=== PATIENT | female | born 2000 | race African-American/Black ===

== ENCOUNTER 2020-11-13 20:06 | Emergency (ER) | payer OTHER ==
[~2020-11-13] VITALS: Ht 157.5 cm; Wt 63.7 kg
[2020-11-13] MEDS ORDERED: ACETAMINOPHEN 500 MG TAB PO ONE (21:45)
[2020-11-13 22:36] LABS: RSV AMPLIFICATION NEGATIVE (NEGATIVE)
[2020-11-13] MEDS ORDERED: NS 1,000 ML IV ONE (22:55)
[2020-11-13 23:30] LABS: BASO % 0.2 % (0.0-1.0); EOS % 0.2 % (0.0-3.0); LYMPH # 1.4 10^3/uL (1.5-5.0); LYMPH % 10.7 % (24.0-44.0); MEAN CORPUSCULAR HEMOGLOBIN 26.4 pg (27.0-33.0); MEAN CORPUSCULAR HGB CONC 31.6 g/dl (32.0-36.5); MEAN CORPUSCULAR VOLUME 83.7 fl (80.0-96.0); MONO # 1.4 10^3/uL (0.0-0.8); MONO % 11.1 % (2.0-8.0); NEUTROPHILS % 77.3 % (36.0-66.0); PLATELET COUNT, AUTOMATED 266 10^3/uL (150-450); RED BLOOD COUNT 4.54 10^6/uL (4.00-5.40); WHITE BLOOD COUNT 12.9 10^3/uL (4.0-10.0)
[2020-11-13 23:50] LABS: C REACTIVE PROTEIN QUANTITATIV 4.64 MG/DL (0.00-0.30)
[2020-11-13 23:53] LABS: ERYTHROCYTE SEDIMENTATION RATE 43 mm/hr (0-20)
[2020-11-13 23:55] LABS: MONO SCRN NEGATIVE (NEGATIVE)
[2020-11-14] MEDS ORDERED: cefTRIAXone SOD 1 GM in D5W MINI-BAG PLUS 50 ML IV ONE (00:35)
--- NOTE | 2020-11-14 01:11 | REPVR ---
PROCEDURE INFORMATION: Exam: XR Chest Exam date and time: 11/13/2020 11:43 PM Age: 19 years old Clinical indication: Cough and fever; Additional info: Cough, fever TECHNIQUE: Imaging protocol: XR of the chest. Views: 2 views. COMPARISON: No relevant prior studies available. FINDINGS: Lungs: Unremarkable. No consolidation. Pleural spaces: Unremarkable. No pleural effusion. No pneumothorax. Heart/Mediastinum: Unremarkable. No cardiomegaly. Bones/joints: Unremarkable. IMPRESSION: No acute findings. Electronically signed by: Jamey Gonsalez On 11/14/2020 01:10:44 AM
[2020-11-14] MEDS ORDERED: CEPH500C PO (01:26)
[2020-11-14 01:42] VITALS: BP 126/73
== END 2020-11-14 01:42 | disposition home or self-care (01) ==
LOC: M ED 20:06
DX: N10 Acute pyelonephritis (principal); R50.9 Fever, unspecified
CPT/HCPCS: 71046; 80047; 81001; 83605; 84702; 85025; 85652; 86140; 86308; 87040; 87088; 87186; 87631; 96365; 99283; J0696

== ENCOUNTER 2020-11-16 11:10 | Observation (INO) | payer OTHER ==
[~2020-11-16] VITALS: Ht 157.5 cm; Wt 62.7 kg
[~2020-11-16 11:10] MED LIST: CEPH500C PO
[2020-11-16 12:31] LABS: APPEARANCE, URINE HAZY (CLEAR); BACTERIA, URINE AUTO 1+ (NEGATIVE); BILIRUBIN, URINE AUTO NEGATIVE (NEGATIVE); BLOOD, URINE BLOOD NEGATIVE (NEGATIVE); COLOR, URINE YELLOW (YELLOW); GLUCOSE, URINE (UA) AUTO NEGATIVE (NEGATIVE); KETONE, URINE AUTO NEGATIVE (NEGATIVE); LEUKOCYTE ESTERASE, URINE AUTO 2+ (NEGATIVE); MUCUS, URINE SMALL (NEGATIVE); NITRITE, URINE AUTO NEGATIVE (NEGATIVE); PROTEIN, URINE AUTO NEGATIVE (NEGATIVE); RBC, URINE AUTO 5 /HPF (0-3); SQUAMOUS EPITHELIAL CELL UR AU 1 /HPF (0-6); UROBILINOGEN, URINE AUTO 0.2 mg/dL (0.0-2.0); WBC, URINE AUTO 21 /HPF (0-3)
[2020-11-16] MEDS ORDERED: NS 1,000 ML IV ONE ×2 (13:10→14:30)
[2020-11-16 14:21] LABS: HEMATOCRIT 36.2 % (36.0-47.0); HEMOGLOBIN 11.5 g/dl (12.0-15.5); MEAN CORPUSCULAR HGB CONC 31.8 g/dl (32.0-36.5); PLATELET COUNT, AUTOMATED 256 10^3/uL (150-450); RED BLOOD COUNT 4.26 10^6/uL (4.00-5.40); WHITE BLOOD COUNT 6.6 10^3/uL (4.0-10.0)
[2020-11-16 14:49] LABS: ALT/SGPT 19 U/L (12-78); BILIRUBIN,DIRECT < 0.1 MG/DL (0.0-0.2); BILIRUBIN,TOTAL 0.2 MG/DL (0.2-1.0); BLOOD UREA NITROGEN 13 MG/DL (7-18); CALCIUM LEVEL 8.6 MG/DL (8.5-10.1); CARBON DIOXIDE LEVEL 27 MEQ/L (21-32); CHLORIDE LEVEL 109 MEQ/L (98-107); CREATININE FOR GFR 0.67 MG/DL (0.55-1.30); GLOMERULAR FILTRATION RATE > 60.0 (>60); GLUCOSE, FASTING 89 MG/DL (70-100); LIPASE 121 U/L (73-393); POTASSIUM SERUM 3.9 MEQ/L (3.5-5.1); SODIUM LEVEL 139 MEQ/L (136-145); TOTAL PROTEIN 7.5 GM/DL (6.4-8.2)
[2020-11-16 14:53] LABS: HCG, SERUM QUALITATIVE NEGATIVE (NEGATIVE)
[2020-11-16] MEDS ORDERED: ISOVUE-370 76% 100ML VIAL As Ordered ONE (15:31)
[2020-11-16] MEDS ORDERED: cefTRIAXone SOD 1 GM in D5W MINI-BAG PLUS 50 ML IV ONE (15:35)
[2020-11-16 16:01] LABS: ATYPICAL LYMPH 13 % (0-5); LYMPHOCYTES 30 % (16-44); MONOCYTES 15 % (0-5); NEUTROPHILS 42 % (28-66); PLATELET ESTIMATE NORMAL (NORMAL)
--- NOTE | 2020-11-16 16:11 | REP ---
INDICATION: R flank into RLQ pain, concern for pyelonephritis COMPARISON: None. TECHNIQUE: CT Scan of the abdomen and pelvis was performed with intravenous administration of 100 cc of Isovue 370, without oral contrast. Sagittal and coronal reconstruction images are performed. FINDINGS: Lung bases: Unremarkable. Liver: Normal Gallbladder: Unremarkable. Spleen: Normal. Adrenals: Normal. Pancreas: Normal. Kidneys: Small scattered ill-defined hypodense areas in the renal cortex bilaterally are noted with associated loss of corticomedullary differentiation. The findings are suggestive of pyelonephritis. There is no hydronephrosis. Small and large bowel: Unremarkable. Free fluid: There is trace free fluid in the cul-de-sac likely physiologic. Abdominal aorta: No aneurysm or dissection. Adenopathy: None. Appendix: Not inflamed. Osseous structures: Unremarkable. Pelvis: No mass. IMPRESSION: Findings compatible with bilateral pyelonephritis. No hydronephrosis or other acute abnormality. <Electronically signed by Timmy Conde > 11/16/20 [id number]
[2020-11-16] MEDS ORDERED: KETOROLAC 30 MG/ML 1ML VIAL IV ONE (17:20)
--- NOTE | 2020-11-16 18:07 | HPEPDOC ---
General Date of Admission 11/16/20 Date of Service: Nov 16, 2020 Chief Complaint The patient is a 19-year-old female admitted with a reason for visit of Urinary Problem. 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 Patient was here on November 13 with fever and right-sided back pain. At that time she was diagnosed with the pyelonephritis and sent home with them the prescription for Keflex. However, patient did not start antibiotics at all. . She went to see her primary care today for a sick call and was told to come back to the emergency room. Patient's urine culture from November 13 is growing Escherichia coli sensitive to all antibiotics. Of note, patient had a urinary tract infection in October when she was treated with 5 days of nitrofurantoin and her symptoms of dysuria, frequency of urination went away and she was well for 3 weeks. Her back pain started on November 11 , located at the mid back. First was on right side now on both sides. Dull aching in nature with no radiation. . She was also having her menstruation at the same time, so she initially thought it was a either a muscle cramp or related to her menstruation. However, the back pain didn't go away after 2 days, so she came to the emergency room on the . Now back again with the persisting back pain. CT abdomen and pelvis in the emergency room showed suggestions of bilateral pyelonephritis. Patient is being admitted for pyelonephritis. Home Medications No Active Prescriptions or Reported Meds Allergies Coded Allergies: No Known Allergies (Unverified , 11/13/20) Past Medical History Medical History None Surgical History None Family History Significant Family History: Diabetes (grandmother) Social History * Smoker: other (vape) Alcohol: rarely Drugs: denies A-FIB/CHADSVASC A-FIB History Current/History of A-Fib/PAF?: No Review of Systems Constitutional: Reports: Fatigue; Denies: Chills, Fever, Night Sweats Eyes: Denies: Pain, Vision change Skin: Denies: Rash, Lesions, Breakdown Pulmonary: Denies: Dyspnea, Cough Cardiovascular: Denies: Chest Pain, Palpitations, Orthopnea, Paroxysmal Noc. Dyspnea, Lt Headedness Gastrointestinal: Reports: Abdominal Pain Genitourinary: Reports: Dysuria, Frequency Physical Examination General Exam: Positive: Alert, Cooperative, No Acute Distress Eye Exam: Positive: PERRLA, Conjunctiva & lids normal, EOMI; Negative: Sclera icteric Neck Exam: Positive: Supple; Negative: JVD, thyromegaly Chest Exam: Positive: Clear to auscultation, Normal air movement Heart Exam: Positive: Rate Normal, Regular Rhythm, Normal S1, Normal S2; Negative: Murmurs, Rubs Abdomen Exam: Positive: Normal bowel sounds, Soft, Other (bilateral CVA tenderness present); Negative: Hepatospenomegaly Extremity Exam: Negative: Clubbing, Cyanosis, Edema Vital Signs Vital Signs Date Time Temp Pulse Resp B/P (MAP) Pulse Ox O2 Delivery O2 Flow Rate FiO2 11/16/20 16:13 98.7 50 18 111/67 (82) 100 Room Air Laboratory Data Labs 24H Laboratory Tests 2 11/16/20 12:19: Urine Color YELLOW, Urine Appearance HAZY, Urine pH 5.0, Urine Specific [place] 1.010, Urine Protein NEGATIVE, Urine Glucose (Auto)(UA) NEGATIVE, Urine Ketones (Auto) NEGATIVE, Urine Blood NEGATIVE, Urine Nitrite NEGATIVE, Urine Bilirubin NEGATIVE, Urine Urobilinogen 0.2, Urine Leukocyte Esterase (Auto) 2+H, Urine WBC (Auto) 21H, Urine RBC (Auto) 5H, Urine Hyaline Casts (Auto) 0, Urine Bacteria (Auto) 1+H, Urine Squamous Epithelial Cells 1, Urine Mucus (Auto) SMALL, Urine Sperm (Auto) 11/16/20 14:05: Neutrophils (%) (Auto) , Nucleated Red Blood Cells % (auto) 0.0, Neutrophils 42, Lymphocytes (Manual) 30, Monocytes (Manual) 15H, Atypical Lymphocytes 13H, Platelet Estimate NORMAL, Anion Gap 3L, Glomerular Filtration Rate > 60.0, Lactic Acid Level 1.0, Calcium Level 8.6, Total Bilirubin 0.2, Direct Bilirubin < 0.1, Aspartate Amino Transf (AST/SGOT) 13, Alanine Aminotransferase (ALT/SGPT) 19, Alkaline Phosphatase 66, Total Protein 7.5, Albumin 3.0L, Albumin/Globulin Ratio 0.7L, Lipase 121, Human Chorionic Gonadotropin, Qual NEGATIVE CBC/BMP Laboratory Tests 11/16/20 14:05 Microbiology Microbiology 11/16/20 Blood Culture, Received Pending 11/16/20 Blood Culture, Received Pending Assessment/Plan 19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 Patient was here on November 13 with fever and right-sided back pain. At that time she was diagnosed with the pyelonephritis and sent home with them the prescription for Keflex. However, patient did not start antibiotics at all. . She went to see her primary care today for a sick call and was told to come back to the emergency room. Patient's urine culture from November 13 is growing Escherichia coli sensitive to all antibiotics. Of note, patient had a urinary tract infection in October when she was treated with 5 days of nitrofurantoin and her symptoms of dysuria, frequency of urination went away and she was well for 3 weeks. Her back pain started on November 11 , located at the mid back. First was on right side now on both sides. Dull aching in nature with no radiation. . She was also having her menstruation at the same time, so she initially thought it was a either a muscle cramp or related to her menstruation. However, the back pain didn't go away after 2 days, so she came to the emergency room on the . Now back again with the persisting back pain. CT abdomen and pelvis in the emergency room showed suggestions of bilateral pyelonephritis. Patient is being admitted for pyelonephritis. Bilateral pyelonephritis CT abd: Small scattered ill-defined hypodense areas in the renal cortex bi laterally are noted with associated loss of corticomedullary differentiation. The findings are suggestive of pyelonephritis. Will give ceftriaxone Last urine culture was Escherichia coli , but was only 80,000 CFU. Blood culture from November 13 negative Urine culture and blood cultures have been sent today Toradol for pain Plan / VTE VTE Prophylaxis Ordered?: Yes LIZZIE PRIETO MD Nov 16, 2020 17:27
[2020-11-16 20:01] LABS: CHLAMYDIA DNA AMPLIFICATION NEGATIVE (NEGATIVE); GC DNA AMPLIFICATION NEGATIVE (NEGATIVE)
[2020-11-16 20:15] VITALS: BP 123/69
[2020-11-17 06:15] LABS: MEAN CORPUSCULAR HEMOGLOBIN 26.7 pg (27.0-33.0); MEAN CORPUSCULAR HGB CONC 31.6 g/dl (32.0-36.5); MEAN CORPUSCULAR VOLUME 84.6 fl (80.0-96.0); PLATELET COUNT, AUTOMATED 323 10^3/uL (150-450); RED BLOOD COUNT 4.49 10^6/uL (4.00-5.40); WHITE BLOOD COUNT 7.3 10^3/uL (4.0-10.0)
[2020-11-17 06:46] LABS: BLOOD UREA NITROGEN 10 MG/DL (7-18); CALCIUM LEVEL 8.2 MG/DL (8.5-10.1); CARBON DIOXIDE LEVEL 27 MEQ/L (21-32); CHLORIDE LEVEL 109 MEQ/L (98-107); CREATININE FOR GFR 0.76 MG/DL (0.55-1.30); GLOMERULAR FILTRATION RATE > 60.0 (>60); GLUCOSE, FASTING 92 MG/DL (70-100); POTASSIUM SERUM 4.4 MEQ/L (3.5-5.1); SODIUM LEVEL 141 MEQ/L (136-145)
[2020-11-17] MEDS ORDERED: cefTRIAXone SOD 1 GM in D5W MINI-BAG PLUS 50 ML IV SCH (12:00)
[2020-11-17] MEDS ORDERED: CEFD300CAP PO (12:47)
[2020-11-17 14:36] VITALS: BP 106/60
--- NOTE | 2020-11-17 18:50 | IPNPDOC ---
Subjective Date Seen The patient was seen on 11/17/20. Subjective Chief Complaint/HPI No complaints today. Back pain is much better. patient had refused toradol last night. Objective Physical Examination General Exam: Positive: Alert, Cooperative, No Acute Distress Eye Exam: Positive: PERRLA, Conjunctiva & lids normal, EOMI; Negative: Sclera icteric Neck Exam: Positive: Supple; Negative: JVD, thyromegaly Chest Exam: Positive: Clear to auscultation, Normal air movement Heart Exam: Positive: Rate Normal, Regular Rhythm, Normal S1, Normal S2; Negative: Murmurs, Rubs Abdomen Exam: Positive: Normal bowel sounds, Soft, Other (bilateral CVA tenderness present); Negative: Hepatospenomegaly Extremity Exam: Negative: Clubbing, Cyanosis, Edema Assessment /Plan Assessment 19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 Patient was here on November 13 with fever and right-sided back pain. At that time she was diagnosed with the pyelonephritis and sent home with them the prescription for Keflex. However, patient did not start antibiotics at all. . She went to see her primary care today for a sick call and was told to come back to the emergency room. Patient's urine culture from November 13 is growing Escherichia coli sensitive to all antibiotics. Of note, patient had a urinary tract infection in October when she was treated with 5 days of nitrofurantoin and her symptoms of dysuria, frequency of urination went away and she was well for 3 weeks. Her back pain started on November 11 , located at the mid back. First was on right side now on both sides. Dull aching in nature with no radiation. . She was also having her menstruation at the same time, so she initially thought it was a either a muscle cramp or related to her menstruation. However, the back pain didn't go away after 2 days, so she came to the emergency room on the . Now back again with the persisting back pain. CT abdomen and pelvis in the emergency room showed suggestions of bilateral pyelonephritis. Patient is being admitted for pyelonephritis. Bilateral pyelonephritis CT abd: Small scattered ill-defined hypodense areas in the renal cortex b ilaterally are noted with associated loss of corticomedullary differentiation. The findings are suggestive of pyelonephritis. received ceftriaxone in hospital. will be discharged with cefdinir. Last urine culture was Escherichia coli , but was only 80,000 CFU. Blood culture from November 13 negative blood cultures negative till date Ibuprofen prn for back pain Dispo: Home Plan/VTE VTE Prophylaxis Ordered?: Yes VS, I&O, 24H, Fishbone Vital Signs/I&O Vital Signs Date Time Temp Pulse Resp B/P (MAP) Pulse Ox O2 Delivery O2 Flow Rate FiO2 11/16/20 20:16 98.1 60 18 114/70 (85) 100 Room Air I&O- Last 24 Hours up to 6 AM 11/17/20 06:00 Intake Total 2290 ml Output Total 0 ml Balance 2290 ml Laboratory Data 24H LABS Laboratory Tests 2 11/16/20 12:19: Urine Color YELLOW, Urine Appearance HAZY, Urine pH 5.0, Urine Specific [place] 1.010, Urine Protein NEGATIVE, Urine Glucose (Auto)(UA) NEGATIVE, Urine Ketones (Auto) NEGATIVE, Urine Blood NEGATIVE, Urine Nitrite NEGATIVE, Urine Bilirubin NEGATIVE, Urine Urobilinogen 0.2, Urine Leukocyte Esterase (Auto) 2+H, Urine WBC (Auto) 21H, Urine RBC (Auto) 5H, Urine Hyaline Casts (Auto) 0, Urine Bacteria (Auto) 1+H, Urine Squamous Epithelial Cells 1, Urine Mucus (Auto) SMALL, Urine Sperm (Auto) , Chlamydia trachomatis DNA (VITALIY) NEGATIVE, Neisseria gonorrhoeae DNA (VITALIY) NEGATIVE 11/16/20 14:05: Neutrophils (%) (Auto) , Nucleated Red Blood Cells % (auto) 0.0, Neutrophils 42, Lymphocytes (Manual) 30, Monocytes (Manual) 15H, Atypical Lymphocytes 13H, Platelet Estimate NORMAL, Anion Gap 3L, Glomerular Filtration Rate > 60.0, Lactic Acid Level 1.0, Calcium Level 8.6, Total Bilirubin 0.2, Direct Bilirubin < 0.1, Aspartate Amino Transf (AST/SGOT) 13, Alanine Aminotransferase (ALT/SGPT) 19, Alkaline Phosphatase 66, Total Protein 7.5, Albumin 3.0L, Albumin/Globulin Ratio 0.7L, Lipase 121, Human Chorionic Gonadotropin, Qual NEGATIVE 11/16/20 17:10: Coronavirus (COVID-19)(PCR) NEGATIVE 11/17/20 05:34: Nucleated Red Blood Cells % (auto) 0.0, Anion Gap 5L, Glomerular Filtration Rate > 60.0, Calcium Level 8.2L CBC/BMP Laboratory Tests 11/16/20 14:05 11/17/20 05:34 Microbiology Microbiology 11/16/20 Blood Culture, Received Pending 11/16/20 Blood Culture, Received Pending LIZZIE PRIETO MD Nov 17, 2020 07:53
== END 2020-11-17 17:45 | disposition home or self-care (01) ==
LOC: M ED 11:10 → M ED INP 11:11 → ENRESERV 18:53 → M MS5PR 22:04
PROVIDERS: ADMIT Internal Medicine Nephrology; ATTEND Internal Medicine Nephrology
DX: N12 Tubulo-interstitial nephritis, not specified as acute or chronic (principal); M54.6 Pain in thoracic spine; Z87.440 Personal history of urinary (tract) infections; F17.290 Nicotine dependence, other tobacco product, uncomplicated
CPT/HCPCS: 36415; 74177; 80048; 80076; 81001; 83605; 83690; 84703; 85025; 85027; 87040; 87491; 87591; 87661; 96361; 96365; 96366; 96376; 99284; J0696; Q9967; U0002

== ENCOUNTER 2021-01-05 10:07 | Emergency (ER) | payer OTHER ==
[~2021-01-05] VITALS: Ht 157.5 cm; Wt 63.6 kg
[~2021-01-05 10:07] MED LIST changes: +CEFD300CAP PO
[2021-01-05] MEDS ORDERED: CEPHALEXIN 500 MG CAP PO ONE (12:55)
[2021-01-05] MEDS ORDERED: dexameTHASONE 4 MG/ML 1ML VIAL (J1100 PER 1MG) PO ONE (12:55)
[2021-01-05] MEDS ORDERED: CEPH500C PO (12:57)
[2021-01-05 13:21] VITALS: BP 131/65
== END 2021-01-05 13:40 | disposition home or self-care (01) ==
LOC: M ED 10:07
DX: J03.90 Acute tonsillitis, unspecified (principal); F17.200 Nicotine dependence, unspecified, uncomplicated
CPT/HCPCS: 87880; 99283; J1100

== ENCOUNTER 2021-01-06 22:42 | Emergency (ER) | payer OTHER ==
[~2021-01-06] VITALS: Ht 157.5 cm; Wt 65.3 kg
[2021-01-07 05:21] VITALS: BP 118/65
== END 2021-01-07 05:31 | disposition home or self-care (01) ==
LOC: M ED 22:42
DX: J03.90 Acute tonsillitis, unspecified (principal)

== ENCOUNTER 2021-01-20 06:28 | Observation (INO) | payer OTHER ==
[2021-01-20] VITALS (7 sets, daily range): BP systolic 96–109; BP diastolic 52–62
[~2021-01-20] VITALS: Ht 157.5 cm; Wt 67.0 kg
[2021-01-20] MEDS ORDERED: NS 1,000 ML IV ONE ×2 (07:05→09:10)
[2021-01-20] MEDS ORDERED: ISOVUE-370 76% 100ML VIAL As Ordered ONE (07:10)
[2021-01-20 07:32] LABS: BASO % 0.2 % (0.0-1.0); EOS # 0.2 10^3/uL (0.0-0.5); EOS % 1.2 % (0.0-3.0); HEMATOCRIT 38.6 % (36.0-47.0); HEMOGLOBIN 12.3 g/dl (12.0-15.5); LYMPH # 1.4 10^3/uL (1.5-5.0); LYMPH % 7.5 % (24.0-44.0); MEAN CORPUSCULAR HEMOGLOBIN 26.5 pg (27.0-33.0); MEAN CORPUSCULAR HGB CONC 31.9 g/dl (32.0-36.5); MONO # 1.5 10^3/uL (0.0-0.8); MONO % 8.2 % (2.0-8.0); NEUTROPHILS # 15.2 10^3/uL (1.5-8.5); NEUTROPHILS % 82.3 % (36.0-66.0); PLATELET COUNT, AUTOMATED 310 10^3/uL (150-450); RED BLOOD COUNT 4.65 10^6/uL (4.00-5.40); WHITE BLOOD COUNT 18.5 10^3/uL (4.0-10.0)
[2021-01-20 07:51] LABS: MONO REFLEX EBV COMP NEGATIVE (NEGATIVE)
[2021-01-20 07:53] LABS: C REACTIVE PROTEIN QUANTITATIV 1.01 MG/DL (0.00-0.30)
--- NOTE | 2021-01-20 08:17 | REPVR ---
PROCEDURE INFORMATION: Exam: CT Neck With Contrast Exam date and time: 01/20/2021 7:02 AM Age: 20 years old Clinical indication: Mass, lump, or swelling in neck; Right; Additional info: R large tonsillar swelling into R side of neck TECHNIQUE: Imaging protocol: Computed tomography images of the neck with contrast. Radiation optimization: All CT scans at this facility use at least one of these dose optimization techniques: automated exposure control; mA and/or kV adjustment per patient size (includes targeted exams where dose is matched to clinical indication); or iterative reconstruction. Contrast material: ISOVUE 370; Contrast volume: 75 ml; Contrast route: INTRAVENOUS (IV); COMPARISON: CR Chest, 2 view PA, Lat 11/13/2020 11:32 PM FINDINGS: Paranasal sinuses: 1.5 cm retention cyst is seen in the left maxillary sinus. Pharynx: Examination reveals marked submucosal soft tissue swelling involving the oropharynx extending superiorly into the nasopharynx and inferiorly into the hypopharynx consistent with severe tonsillitis. There is an approximately 2.5 x 2.5 x 2.4 cm thick-walled hypodense fluid collection in the right lateral wall of the oropharynx consistent with a peritonsillar abscess. The soft tissue inflammatory changes extends inferiorly to involve the right hypopharynx, base of the tongue and right submandibular region. There is moderate narrowing of the airway at the level of the oropharynx. Larynx: Unremarkable. Normal epiglottis. Retropharyngeal space: Unremarkable. Submandibular/Parotid glands: Normal. Glands are normal in size. Thyroid: Normal. No enlarged or calcified nodules. Lymph nodes: There are multiple enlarged level I , 2 and 3 lymph nodes in the neck bilaterally, most likely reactive in etiology. Trachea: Visualized trachea is unremarkable. Lungs: Unremarkable as visualized. Bones/joints: Unremarkable. No acute fracture. IMPRESSION: 1. Examination reveals marked submucosal soft tissue swelling involving the oropharynx extending superiorly into the nasopharynx and inferiorly into the hypopharynx consistent with severe tonsillitis. There is an approximately 2.5 x 2.5 x 2.4 cm thick-walled hypodense fluid collection in the right lateral wall of the oropharynx consistent with a peritonsillar abscess. The soft tissue inflammatory changes extends inferiorly to involve the right hypopharynx, base of the tongue and right submandibular region. There is moderate narrowing of the airway at the level of the oropharynx. 2. There are multiple enlarged level I , 2 and 3 lymph nodes in the neck bilaterally, most likely reactive in etiology. Electronically signed by: Matthew Bates On 01/20/2021 08:16:52 AM
[2021-01-20] MEDS ORDERED: dexameTHASONE 20MG/5ML VIAL (J1100 PER 1MG) IV ONE (08:25)
[2021-01-20] MEDS ORDERED: LIDOCAINE 1% SDV 5ML VIAL DILUENT ONE (08:30)
[2021-01-20] MEDS ORDERED: cefTRIAXone SOD 2 GM VIAL (J0696 PER 250MG) IM ONE (08:30)
[2021-01-20] MEDS ORDERED: cefTRIAXone SOD 2 GM VIAL (J0696 PER 250MG) As Ordered ONE (08:39)
[2021-01-20] MEDS ORDERED: MULTTAB20 PO (08:48)
[2021-01-20] MEDS ORDERED: HOME MED LIST COMPLETE! XX SCH (08:50)
[2021-01-20] MEDS ORDERED: cefTRIAXone SOD 2 GM in D5W MINI-BAG PLUS 50 ML IV ONE (09:10)
[2021-01-20 09:15] LABS: RSV AMPLIFICATION NEGATIVE (NEGATIVE)
[2021-01-20 09:42] LABS: ERYTHROCYTE SEDIMENTATION RATE 14 mm/hr (0-20)
--- NOTE | 2021-01-20 11:35 | CR ---
CONSULTATION DATE: 01/20/2021 CHIEF COMPLAINT: Swelling of the right tonsil. HISTORY OF PRESENT ILLNESS: This is a 20-year-old woman who presented to the [facility] Emergency Department with complaint of worsening of right sided throat pain associated with dysphagia and breathing difficulty. She has been treated with oral antibiotic without resolution of her symptoms over the past few days. She also complains of trismus. A CT of the neck was performed and a right peritonsillar abscess measuring at least 2.6 cm in size has been reported. I was consulted on an urgent basis to manage the tonsillary abscess. Patient has a history of recurrent tonsillitis. She has no bleeding disorders. PAST MEDICAL HISTORY: None. PAST SURGICAL HISTORY: No prior head and neck surgery. ALLERGIES: No known drug allergies. MEDICATIONS: None. REVIEW OF SYSTEMS: Noncontributory. PHYSICAL EXAMINATION: On examination the patient appeared in moderate distress. No inspiratory stridor noted. Patient appeared uncomfortable. No drooling noted. Trismus noted with a maximal oral opening approximately 1.5 cm to 2 cm. The oral cavity is moist. The floor of mouth is not elevated. Tongue mobile, erythematous and edematous right soft palpate with mild deviation of the uvula to the left side. The right tonsil appears to be edematous as well. The posterior pharyngeal wall was partially visualized. Tender right jugular epigastric lymph nodes. Trachea is midline. No thyromegaly. IMAGING STUDIES: I reviewed the CT neck images and report; right peritonsillar abscess 2.6 cm. PLAN: I discussed the management options including incision and drainage of the peritonsillar abscess. As the patient is quite symptomatic as well as having trismus, she is agreeable to have the procedure done in the Operating Room in order to secure the airway. I will have this procedure arranged on an urgent basis with the Operating Room. Consent obtained from the patient.
[2021-01-20] MEDS ORDERED: fentaNYL 100 MCG/2 ML INJECTION (J3010) As Ordered ONE ×2 (12:14→13:46)
[2021-01-20] MEDS ORDERED: SUCCINYLCHOLINE 100 MG/5 ML SYRINGE (J0330) As Ordered ONE (12:15)
[2021-01-20] MEDS ORDERED: propofoL 200 MG/20 ML VIAL As Ordered ONE (12:16)
[2021-01-20] MEDS ORDERED: ROCURONIUM BROMIDE 50 MG/5 ML VIAL As Ordered ONE (12:16)
[2021-01-20] MEDS ORDERED: ONDANSETRON 4MG/2ML VIAL As Ordered ONE (12:16)
[2021-01-20] MEDS ORDERED: dexameTHASONE 4 MG/ML 1ML VIAL (J1100 PER 1MG) As Ordered ONE (12:16)
[2021-01-20] MEDS ORDERED: LIDOCAINE 2% 100MG/5ML SDV (FOR ANES.) As Ordered ONE (12:16)
[2021-01-20] MEDS ORDERED: MIDAZOLAM INJ 2MG/2ML VIAL (J2250 PER 1MG) As Ordered ONE (12:16)
[2021-01-20] MEDS ORDERED: LIDOCAINE W/EPINEPHRINE 1% 20ML VIAL As Ordered ONE (12:46)
[2021-01-20] MEDS ORDERED: GLYCOPYRROLATE INJ 0.2 MG/ML 2 ML VIAL As Ordered ONE (13:13)
[2021-01-20] MEDS ORDERED: NEOSTIGMINE 10MG/10ML VIAL (J2710 PER 0.5MG) As Ordered ONE (13:13)
[2021-01-20] MEDS: fentaNYL 100 MCG/2 ML INJECTION (J3010) IV PRN ×2 (13:47→13:53)
[2021-01-20] MEDS ORDERED: ACETAMINOPHEN TAB 650MG DOSE (2X325MG) PO PRN (13:55)
[2021-01-20] MEDS ORDERED: ONDANSETRON 4MG/2ML VIAL IV PRN (13:55)
[2021-01-20] MEDS ORDERED: METOCLOPRAMIDE INJ 10MG/2ML VIAL (J2765 PER 1) IV PRN (13:55)
[2021-01-20] MEDS ORDERED: LR 1,000 ML IV SCH (13:55)
[2021-01-20] MEDS ORDERED: KETOROLAC 30 MG/ML 1ML VIAL IV PRN (13:55)
[2021-01-20] MEDS ORDERED: HYDROcodone/APAP LIQUID 7.5-325MG 15ML UDC (LORTAB ELIXIR) PO PRN (14:00)
--- NOTE | 2021-01-20 14:22 | HPEPDOC ---
[facility] Medical History & Physical Date of Admission Jan 20, 2021 Date of Service: Jan 20, 2021 Other Provider Jason Joseph MD, ENT Attending Physician: JESSA JAIMES DO History and Physical CHIEF COMPLAINT: Sore throat HISTORY OF PRESENT ILLNESS: Patient is a 20-year-old female presents to the hospital earlier today with a chief complaint of a sore throat. Patient was initially diagnosed with tonsillitis back on January 05 when she presented to the emergency department on [id number] days on January 05 and 2020. Patient states that she was treated then and starting yesterday, 01/19/2021 her sore throat started getting worse. Patient is having difficulty speaking and i states she is having difficulty breathing. Patient had a CT scan in the emergency department which showed an abscess right peritonsillar area. Patient was initially treated with ceftriaxone and ENT was called who took the patient to the operating room. Patient will be admitted overnight for parental antibiotics and further evaluation. PAST MEDICAL HISTORY: Patient denies any past medical history PAST SURGICAL HISTORY: Patient denies any past surgery other than the incision and drainage of perito nsillar abscess that was performed today SOCIAL HISTORY: Patient vapes nicotine and drinks a cup of wine every day but denies illicit drug use. Patient is currently active duty . FAMILY HISTORY: Patient states her mother and father are both healthy ALLERGIES: Please see below. REVIEW OF SYSTEMS: General: Patient denies fevers HEENT: Patient denies headaches. Patient reports pain in her throat Cardiovascular: Patient denies chest pain Respiratory: Patient denies shortness of breath, cough GI: Patient denies abdominal pain, nausea, vomiting, diarrhea : Patient denies increased frequency or pain with urination Extremities: Patient denies swelling or pain in extremities Neurological: Patient denies numbness or tingling in legs Skin: Patient denies any new rashes or lesions. Hematologic: Patient denies any easy bruising. Lymphatic: Patient denies any lumps lumps or bumps in neck, axilla, or groin HOME MEDICATIONS: Please see below. PHYSICAL EXAMINATION: VITAL SIGNS: Temperature 97.6, pulse 72, respiratory rate 20, blood pressure 108/64, pulse oximetry 94% on room air. General: Alert and oriented but tired appearing female who is laying on the stretcher in the post anesthesia care unit when I walked in. Patient not appear to be in any acute distress. HEENT: Normocephalic, atraumatic, moist mucous membranes. Neck: Mild swelling noted around the lower jaw and the anterior part of the neck with some mild tenderness. Cardiac: Regular rate and rhythm, no murmurs, normal S1, normal S2 Pulm: Clear to auscultation bilaterally. No wheezes, rhonchi, rales Abd: Nondistended, nontender to palpation, normal bowel sounds Ext: No edema bilateral lower extremities Neuro: Patient is a move all four extremities without difficulty. Patient reported equal sensation to light touch in upper and lower extremities Skin: Skin of the head, neck, upper and lower extremities examined not show any evidence of rash or other lesion LABORATORY DATA: See below. IMAGING: CT of the neck with contrast performed on 01/20/2021 is reported to show examination reveals marked submucosal soft tissue swelling involving the oropharynx extending superiorly into the nasopharynx and inferiorly into the hypopharynx consistent with severe tonsillitis. There is an approximately 2.5 x 2.5 to 4 thick-walled hypodense fluid collection in the right lateral wall of the oropharynx consistent with a peritonsillar abscess. Soft tissue inflammatory changes extends inferiorly to involve the right hypopharynx, base of the tongue and right submandibular region. There is moderate narrowing of the airway at the level of the oropharynx. There are multiple enlarged level one, two, and three lymph nodes in the neck bilaterally, most likely reactive in etiology. MICROBIOLOGY: Please see below. ASSESSMENT: 20-year-old female who is postoperative after peritonsillar abscess incision and drainage who will be admitted for further management of severe tonsillitis. . PLAN: 1. Peritonsillar abscess. Patient received a dose of ceftriaxone in the emergency department. Patient will be started on ampicillin/sulbactam 3 g every 6 hours while hospitalized. We will continue to monitor the patient overnight. O nce patient is ready for discharge, patient will be transitioned to Augmentin. 2. Severe tonsillitis. We will continue the antibiotic treatment as above. Peritonsillar abscess has been drained by ENT. 3. DVT prophylaxis: Teds and sequentials 4. CODE STATUS: Full code Disposition: Patient be admitted to the medical surgical floor under observation. Possible discharge tomorrow morning. Vital Signs Vital Signs Date Time Temp Pulse Resp B/P (MAP) Pulse Ox O2 Delivery O2 Flow Rate FiO2 01/20/21 14:00 72 20 108/64 (79) 97 Nasal Cannula 2.0 01/20/21 13:39 97.6 Laboratory Data Labs 24H Laboratory Tests 2 01/20/21 07:16: Immature Granulocyte % (Auto) 0.6, Neutrophils (%) (Auto) 82.3H, Lymphocytes (%) (Auto) 7.5L, Monocytes (%) (Auto) 8.2H, Eosinophils (%) (Auto) 1.2, Basophils ( %) (Auto) 0.2, Neutrophils # (Auto) 15.2H, Lymphocytes # (Auto) 1.4L, Monocytes # (Auto) 1.5H, Eosinophils # (Auto) 0.2, Basophils # (Auto) 0.0, Nucleated Red Blood Cells % (auto) 0.0, Erythrocyte Sedimentation Rate 14, C-Reactive Protein, Quantitative 1.01H, Monoscreen NEGATIVE 01/20/21 07:20: POC Glucose (Misc Panel) 106H, POC Sodium (Misc Panel) 138, POC Potassium (Misc Panel) 4.4, POC Chloride (Misc Panel) 102, POC Total CO2 (Misc Panel) 26.0, POC Blood Urea Nitrogen (Misc Panel 17, POC Ionized Calcium (Misc Panel) 4.6, POC Creatinine (Misc Panel) 0.8, POC Hematocrit (Misc Panel) 39.0 01/20/21 07:22: POC Beta HCG, Quantitative < 5.0 01/20/21 08:32: Coronavirus (COVID-19)(PCR) NEGATIVE, Influenza Type A (RT-PCR) NEGATIVE, Inf luenza Type B (RT-PCR) NEGATIVE, Respiratory Syncytial Virus (PCR) NEGATIVE 01/20/21 13:43: CBC/BMP Laboratory Tests 01/20/21 07:16 Microbiology Microbiology 01/20/21 Anaerobic Culture, Received Pending 01/20/21 Gram Stain, Received Pending 01/20/21 Abscess Culture, Received Pending 01/20/21 Blood Culture, Received Pending 01/20/21 Blood Culture, Received Pending 01/20/21 Group A Streptococcus Screen ([facility]), Received Pending Home Medications Scheduled No122/Iron/Folic Acid ( Multi Tablet) 1 Each Tablet, 1 TAB PO DAILY Allergies Coded Allergies: No Known Allergies (Unverified , 6/13/21) A-FIB/CHADSVASC A-FIB History Current/History of A-Fib/PAF?: No JESSA JAIMES DO Jan 20, 2021 14:22
[2021-01-20] MEDS: AMPICILLIN SOD/SULBACTAM SOD 3 GM in D5W MINI-BAG PLUS 100 ML IV SCH ×2 (17:09→20:55)
[2021-01-20] MEDS: dexameTHASONE 4 MG/ML 1ML VIAL (J1100 PER 1MG) IV SCH (17:10)
[2021-01-20] MEDS ORDERED: MORPHINE 2 MG/ML 1ML VIAL (J2270) IV PRN ×2 (17:35)
--- NOTE | 2021-01-20 20:11 | RO ---
OPERATIVE NOTE DATE OF OPERATION: 01/20/2021 PREOPERATIVE DIAGNOSIS: Right paratonsillar abscess. POSTOPERATIVE DIAGNOSIS: Right paratonsillar abscess. PROCEDURE PERFORMED: Incision and drainage of right paratonsillar abscess. SURGEON: RUFINA KELLER MD ANESTHESIA: General. CLINICAL PREAMBLE: This is a 20-year-old woman who presented to the emergency department with increasing worsening of right-sided sore throat associated with dysphagia and some breathing issues. Physical examination revealed presence of edematous right oropharynx involving the paratonsillar region. CT of the neck confirmed the presence of a right paratonsillar abscess. Management options including incision and drainage of the right paratonsillar abscess in the operating room done on an urgent basis have been discussed with the patient. She understood and consented to the procedure. OR NARRATION: Patient was identified in preoperative holding and brought to the operating room in stable condition. In supine position on the operating table, patient received general anesthesia followed by orotracheal intubation without incident. Patient was prepped and draped in the usual fashion for the procedure. The Doron-Riley mouth gag was inserted and suspended. The right upper tonsil pole was infiltrated with 1% lidocaine with 1:100,000 epinephrine. Mucosal incision was made over the right superior pole using the #12 sickle knife blade. Using the Schnidt, the paratonsillar capsule was identified and probed. The abscess cavity was entered and dissected. Approximately 5 mL of purulent discharge was drained from the right paratonsillar area. Then, 500 mL of warm saline solution was used to irrigate the right paratonsillar region. Hemostasis was observed at the end of the case. Estimated blood loss was approximately 10 mL. Sponge and instrument counts were correct at the end of the procedure. Cultures were obtained for gram stain, anaerobics, and C&S at the time when the abscess cavity was initially entered. At the end of the procedure, general anesthesia was reversed and the patient was successfully extubated and brought to the recovery room in stable condition. TOMMIE
[2021-01-21] MEDS: dexameTHASONE 4 MG/ML 1ML VIAL (J1100 PER 1MG) IV SCH ×2 (00:36→08:33)
[2021-01-21 02:00] VITALS: BP 103/56
[2021-01-21] MEDS: AMPICILLIN SOD/SULBACTAM SOD 3 GM in D5W MINI-BAG PLUS 100 ML IV SCH ×2 (03:20→08:33)
[2021-01-21 03:34] VITALS: O2SAT 97
[2021-01-21 06:00] VITALS: BP 113/56
[2021-01-21 07:35] LABS: HEMATOCRIT 34.3 % (36.0-47.0); HEMOGLOBIN 11.3 g/dl (12.0-15.5); MEAN CORPUSCULAR HEMOGLOBIN 27.2 pg (27.0-33.0); MEAN CORPUSCULAR HGB CONC 32.9 g/dl (32.0-36.5); MEAN CORPUSCULAR VOLUME 82.5 fl (80.0-96.0); PLATELET COUNT, AUTOMATED 289 10^3/uL (150-450); RED BLOOD COUNT 4.16 10^6/uL (4.00-5.40); WHITE BLOOD COUNT 19.8 10^3/uL (4.0-10.0)
[2021-01-21 08:00] LABS: BLOOD UREA NITROGEN 12 MG/DL (7-18); CALCIUM LEVEL 8.9 MG/DL (8.5-10.1); CARBON DIOXIDE LEVEL 28 MEQ/L (21-32); CHLORIDE LEVEL 107 MEQ/L (98-107); CREATININE FOR GFR 0.76 MG/DL (0.55-1.30); GLOMERULAR FILTRATION RATE > 60.0 (>60); GLUCOSE, FASTING 134 MG/DL (70-100); MAGNESIUM LEVEL 2.1 MG/DL (1.8-2.4); POTASSIUM SERUM 4.2 MEQ/L (3.5-5.1); SODIUM LEVEL 138 MEQ/L (136-145)
[2021-01-21 10:00] VITALS: BP 109/62
[2021-01-21] MEDS ORDERED: AUGM875T28 PO (10:11)
--- NOTE | 2021-01-21 12:02 | DS.PDOC ---
Discharge Summary General Date of Admission 01/20/2021 Date of Discharge 01/21/2021 Attending Physician: JESSA JAIMES DO Specialist/Consultants Involve: RUFINA KELLER MD Discharge Summary PROCEDURES PERFORMED DURING STAY: Incision and drainage of right peritonsillar abscess. ADMITTING DIAGNOSES: 1. Peritonsillar abscess. 2. Severe tonsillitis DISCHARGE DIAGNOSES: 1. Peritonsillar abscess. 2. Severe tonsillitis COMPLICATIONS/CHIEF COMPLAINT: Abscess. HISTORY OF PRESENT ILLNESS: Patient is a 20-year-old female who presented to the hospital on 01/20/2021 with a chief complaint of sore throat. Patient was initially diagnosed with tonsillitis back on January 05 when she presented to the emergency department on ssie-vs-lwuw days on January 05 and 2020. Patient was treated with cephalexin at that time and states that she finished her cephalexin a day or so before coming to the emergency department. Patient states her throat became acutely worse on 01/19/2021 and it began to cause difficulty breathing. Patient came in the emergency department where a CT scan of the neck showed a right peritonsillar abscess with severe tonsillitis. Patient received a dose of ceftriaxone and ENT was called who took the patient to the operating room for incision and drainage. Patient was admitted overnight for IV antibiotics and further observation. HOSPITAL COURSE: Patient is doing better. Patient received 4 doses of IV ampicillin/sulbactam. Patient was able to tolerate oral intake. I discussed with ENT about sending patient home with follow-up and patient was instructed to follow-up with ENT at the end of next week. Patient will be sent home with Augmentin 875/125 taken twice daily for the next 9 days to complete a 10-day course of antibiotics. We are still awaiting culture results and will call the patient if the cultures require the patient to change antibiotics. Patient was feeling well and was discharged home on 01/21/2021. DISCHARGE MEDICATIONS: Please see below. ALLERGIES: Please see below. PHYSICAL EXAMINATION ON DISCHARGE: VITAL SIGNS: Please see below. General: Alert and oriented female patient who was sitting up in bed eating breakfast when I walked in. Patient did have a hoarse voice but was otherwise in no acute distress. HEENT: Normocephalic, atraumatic, moist mucous membranes, posterior pharynx was erythematous with exudate noticed on the right side without any purulent drainage Neck: Mild swelling in the anterior neck below the jaw with minimal tenderness. Cardiac: Regular rate and rhythm, no murmurs, normal S1, normal S2 Pulm: Clear to auscultation bilaterally. No wheezes, rhonchi, rales Abd: Nondistended, nontender to palpation, normal bowel sounds Ext: No edema bilateral lower extremities LABORATORY DATA: Please see below. IMAGING: CT of the neck with contrast performed on 01/20/2021 is reported to show examination reveals marked submucosal soft tissue swelling involving the oropharynx extending superiorly into the nasopharynx and inferiorly into the hypopharynx consistent with severe tonsillitis. There is an approximately 2.5 x 2.5 to 4 thick-walled hypodense fluid collection in the right lateral wall of the oropharynx consistent with a peritonsillar abscess. Soft tissue inflammatory changes extends inferiorly to involve the right hypopharynx, base of the tongue and right submandibular region. There is moderate narrowing of the airway at the level of the oropharynx. There are multiple enlarged level one, two, and three lymph nodes in the neck bilaterally, most likely reactive in etiology. PROGNOSIS: Good ACTIVITY: As tolerated. DIET: Soft diet advanced to regular as tolerated DISCHARGE PLAN: Discharge home DISPOSITION: . DISCHARGE INSTRUCTIONS: 1. Follow-up with your primary care provider within 3 to 5 days discharge. 2. Follow-up with Dr. Keller of ENT next or Saturday. 3. Continue to take Augmentin twice a day for the next 9 days. We will call if the culture results come back and we need to change her antibiotics. 4. Return to the emergency department if your symptoms worsen. ITEMS TO FOLLOWUP ON ON OUTPATIENT: 1. Resolution of tonsillitis. DISCHARGE CONDITION: Stable. TIME SPENT ON DISCHARGE: 25 minutes. Vital Signs/I&Os Vital Signs Date Time Temp Pulse Resp B/P (MAP) Pulse Ox O2 Delivery O2 Flow Rate FiO2 01/21/21 10:00 97.8 62 18 109/62 (78) 98 Room Air 01/20/21 15:35 2.0 I&O- Last 24 Hours up to 6 AM 01/21/21 06:00 Intake Total 3050 ml Output Total 610 ml Balance 2440 ml Laboratory Data Labs 24H Laboratory Tests 2 01/20/21 13:43: Lactic Acid Level 1.3 01/21/21 07:06: Nucleated Red Blood Cells % (auto) 0.0, Anion Gap 3L, Glomerular Filtration Rate > 60.0, Calcium Level 8.9, Magnesium Level 2.1 CBC/BMP Laboratory Tests 01/21/21 07:06 Microbiology Microbiology 01/20/21 Anaerobic Culture, Received Pending 01/20/21 Gram Stain - Final, Resulted 01/20/21 Abscess Culture, Resulted Pending 01/20/21 Blood Culture - Preliminary, Resulted No growth after 24 hours . All specim... 01/20/21 Blood Culture - Preliminary, Resulted No growth after 24 hours . All specim... 01/20/21 Group A Streptococcus Screen ([facility]) - Final, Complete Streptococcus Group C Discharge Medications Scheduled Amoxicillin/Potassium Clav (Augmentin 875-125 Tablet) 1 Each Tablet, 1 TAB PO BID No122/Iron/Folic Acid ( Multi Tablet) 1 Each Tablet, 1 TAB PO DAILY, (Reported) Allergies Coded Allergies: No Known Allergies (Unverified , 11/13/20) JESSA JAIMES DO Jan 21, 2021 12:02
[2021-01-21 16:11] LABS: EBV AB TO NUCLEAR ANTIGEN 47.5 U/mL (0.0-17.9); EBV VIRAL CAPSID AG IgM <36.0 U/mL (0.0-35.9)
== END 2021-01-21 13:30 | disposition home or self-care (01) ==
LOC: M ED 06:28 → M SDC 06:29 → M MS5PR 06:29 → M ED 11:38 → M SDC 15:50 → M MS5PR 15:50 → M SDC 01-21 13:30 → M MS5PR 01-21 13:30
PROVIDERS: ADMIT Family Medicine; ATTEND Family Medicine
DX: J36 Peritonsillar abscess (principal); R59.0 Localized enlarged lymph nodes; R13.10 Dysphagia, unspecified; R06.89 Other abnormalities of breathing; Z79.2 Long term (current) use of antibiotics; F17.290 Nicotine dependence, other tobacco product, uncomplicated
CPT/HCPCS: 36415; 42700; 70491; 80047; 80048; 83605; 83735; 84702; 85025; 85027; 85652; 86140; 86308; 86664; 86665; 87040; 87070; 87075; 87076; 87077; 87184; 87186; 87205; 87631; 94760; 96365; 96366; 96367; 96375; 96376; 99285; J0330; J0696; J1100; J1885; J2250; J2270; J2405; J2710; J3010; Q9967

== ENCOUNTER 2021-04-06 08:54 | Emergency (ER) | payer OTHER ==
[~2021-04-06] VITALS: Ht 157.5 cm; Wt 70.4 kg
[~2021-04-06 08:54] MED LIST changes: +AUGM875T28 PO; +MULTTAB20 PO
--- OUTSIDE RECORDS SUMMARY | 2021-04-06 09:00 | CCD ---
Author Author [facility] Address Unknown Phone Unavailable Support Name Relationship Address Phone [facility] Next Of Kin [address] [address] Unavailable Re-disclosure Warning The records that you are about to access may contain information from federally-assisted alcohol or drug abuse programs. If such information is present, then the following federally mandated warning applies: This information has been disclosed to you from records protected by federal confidentiality rules (42 CFR part 2). The federal rules prohibit you from making any further disclosure of this information unless further disclosure is expressly permitted by the written consent of the person to whom it pertains or as otherwise permitted by 42 CFR part 2. A general authorization for the release of medical or other information is NOT sufficient for this purpose. The Federal rules restrict any use of the information to criminally investigate or prosecute any alcohol or drug abuse patient.The records that you are about to access may contain highly sensitive health information, the redisclosure of which is protected by Article 27-F of the [facility] Public Health law. If you continue you may have access to information: Regarding HIV / AIDS; Provided by facilities licensed or operated by the [facility] Office of Mental Health; or Provided by the [facility] Office for People With Developmental Disabilities. If such information is present, then the following [facility] mandated warning applies: This information has been disclosed to you from confidential records which are protected by state law. State law prohibits you from making any further disclosure of this information without the specific written consent of the person to whom it pertains, or as otherwise permitted by law. Any unauthorized further disclosure in violation of state law may result in a fine or [place] [facility] sentence or both. A general authorization for the release of medical or other information is NOT sufficient authorization for further disc losure. Medications No Information Insurance Providers Payer name Policy type / Coverage type Policy ID Covered libertarian ID Covered libertarian's relationship to hdez Policy Hedz Plan Information [facility] [employer]IVE DUTY [id number] Problems, Conditions, and Diagnoses No Information Surgeries/Procedures No Information Results ID Date Data Source [id number] 01/20/2021 08:32:00 AM EDT [facility] Name Value Range Interpretation Code Description Data Lorie rce(s) Supporting Document(s) SARS coronavirus 2 RNA [Presence] in Res piratory specimen by VITALIY with probe detection NEGATIVE [facility] This lab was ordered by [facility] a nd reported by [facility]. ID Date Data Source [id number] 11/16/2020 05:10:00 PM EDT [facility] Name Value Range Interpretation Code Description Data Lorie rce(s) Supporting Document(s) SARS coronavirus 2 RNA [Presence] in Res piratory specimen by [facility] with probe detection NEGATIVE [facility] This lab was ordered by [facility] a nd reported by [facility]. ID Date Data Source [id number] 11/22/2020 04:06:00 PM EDT [facility] Name Value Range Interpretation Code Description Data Lorie rce(s) Supporting Document(s) Trich vag by [facility] TESTS RESULT FLAG UNI TS REF RANGE LAB Trich vag by VITALIY Negative (Negative) 01 FLAG LEGEND: L-Low Normal,H-High Normal,LL-Alert Low,HH-Alert High <-Panic Low,>-Panic High,A-Abnormal,AA-Critical Abnormal Performed at:[facility] [address] [id number] Amy Cohen MD, Procedure Social History No Information
[2021-04-06 09:45] LABS: HEMATOCRIT 41.8 % (36.0-47.0); HEMOGLOBIN 13.1 g/dl (12.0-15.5); MEAN CORPUSCULAR HEMOGLOBIN 26.1 pg (27.0-33.0); MEAN CORPUSCULAR HGB CONC 31.3 g/dl (32.0-36.5); MEAN CORPUSCULAR VOLUME 83.4 fl (80.0-96.0); PLATELET COUNT, AUTOMATED 347 10^3/uL (150-450); RED BLOOD COUNT 5.01 10^6/uL (4.00-5.40); WHITE BLOOD COUNT 7.8 10^3/uL (4.0-10.0)
--- OUTSIDE RECORDS SUMMARY | 2021-04-06 10:04 | CCD ---
Author Author [facility] Address Unknown Phone Unavailable Support Name Relationship Address Phone [facility] Next Of Kin [address] [address] Unavailable Re-disclosure Warning The records that you [...] is protected by Article 27-F of the [facility] Public Health law. If you continue you may have access to information: Regarding HIV / AIDS; Provided by facilities licensed or operated by the [facility] Office of Mental Health; or Provided by the [facility] Office for People With Developmental Disabilities. If such information is present, then the following [facility] mandated warning applies: This information has [...] law may result in a fine or long term sentence or both. A general authorization for the release of medical or other information is NOT sufficient authorization for further disc losure. Medications No Information Insurance Providers Payer name Policy type / Coverage type Policy ID Covered alliance party ID Covered alliance party's relationship to hdez Policy Hdez Plan Information [facility] ACTIVE DUTY [id number] Problems, Conditions, and Diagnoses No Information Surgeries/Procedures No Information Results ID Date Data Source [id number] 01/20/2021 08:32:00 AM EDT [facility] Name Value Range Interpretation Code Description Data Lorie rce(s) Supporting Document(s) SARS coronavirus 2 RNA [Presence] in Res piratory specimen by V[facility]Y with probe detection NEGATIVE [facility] This lab was ordered by [facility] a nd reported by [facility]. ID Date Data Source [id number] 11/16/2020 05:10:00 PM EDT [facility] Name Value Range Interpretation Code Description Data Lorie rce(s) Supporting Document(s) SARS coronavirus 2 RNA [Presence] in Res piratory specimen by VITALIY with probe detection NEGATIVE [facility] This lab was ordered by [facility] a nd reported by [facility]. ID Date Data Source [id number] 11/22/2020 04:06:00 PM EDT [facility] Name Value Range Interpretation Code Description Data Lorie rce(s) Supporting Document(s) Trich vag by VITALIY [facility] TESTS RESULT FLAG UNI TS REF RANGE LAB Trich vag by VITALIY Negative (Negative) 01 FLAG LEGEND: L-Low Normal,H-High Normal,LL-Alert Low,HH-Alert High <-Panic Low,>-Panic High,A-Abnormal,AA-Critical Abnormal Performed at:[address] [facility] [address] [id number] Amy Cohen MD, Procedure Social History No Information
[2021-04-06 11:39] VITALS: BP 118/72
[2021-04-06 12:13] LABS: GC DNA AMPLIFICATION NEGATIVE (NEGATIVE)
== END 2021-04-06 11:41 | disposition home or self-care (01) ==
LOC: M ED 08:54
DX: N93.9 Abnormal uterine and vaginal bleeding, unspecified (principal); Z87.448 Personal history of other diseases of urinary system; Z79.899 Other long term (current) drug therapy

== ENCOUNTER 2021-05-09 15:14 | Emergency (ER) | payer OTHER ==
[~2021-05-09] VITALS: Ht 160 cm; Wt 70.5 kg
[2021-05-09] MEDS ORDERED: ACET325C5 PO (15:26)
[2021-05-09 23:28] VITALS: BP 109/64
[2021-05-10] MEDS ORDERED: CIPR-249 PO (01:09)
[2021-05-10] MEDS ORDERED: ONDA4TAB6 PO (01:09)
[2021-05-10] MEDS ORDERED: cefTRIAXone SOD 1GM VIAL (J0696 PER 250MG) IM ONE (01:10)
[2021-05-10] MEDS ORDERED: cefTRIAXone SOD 1 GM in D5W MINI-BAG PLUS 50 ML IV ONE (01:10)
[2021-05-10] MEDS ORDERED: ONDANSETRON 4 MG ORAL DISINTEGRATING TAB PO ONE (01:10)
[2021-05-10] MEDS ORDERED: LIDOCAINE 1% SDV 5ML VIAL DILUENT ONE (01:10)
== END 2021-05-10 01:53 | disposition home or self-care (01) ==
LOC: M ED 15:14
DX: N10 Acute pyelonephritis (principal); Z87.448 Personal history of other diseases of urinary system
CPT/HCPCS: 81001; 87088; 87186; 96372; 99283; J0696; Q0162

== ENCOUNTER 2021-05-11 20:56 | Emergency (ER) | payer OTHER ==
[~2021-05-11] VITALS: Ht 157.5 cm; Wt 70.3 kg
[~2021-05-11 20:56] MED LIST changes: +ACET325C5 PO; +CIPR-249 PO; +ONDA4TAB6 PO
[2021-05-11 21:45] LABS: HEMATOCRIT 37.3 % (36.0-47.0); HEMOGLOBIN 11.9 g/dl (12.0-15.5); MEAN CORPUSCULAR HEMOGLOBIN 26.3 pg (27.0-33.0); MEAN CORPUSCULAR HGB CONC 31.9 g/dl (32.0-36.5); MEAN CORPUSCULAR VOLUME 82.5 fl (80.0-96.0); PLATELET COUNT, AUTOMATED 314 10^3/uL (150-450); RED BLOOD COUNT 4.52 10^6/uL (4.00-5.40); WHITE BLOOD COUNT 5.9 10^3/uL (4.0-10.0)
[2021-05-11 22:13] LABS: HCG, SERUM QUALITATIVE NEGATIVE (NEGATIVE)
[2021-05-11 22:24] LABS: ACETAMINOPHEN LEVEL < 2.0 UG/ML (10.0-30.0); ALBUMIN 3.4 GM/DL (3.2-5.2); ALT/SGPT 15 U/L (12-78); BILIRUBIN,DIRECT < 0.1 MG/DL (0.0-0.2); BILIRUBIN,TOTAL 0.2 MG/DL (0.2-1.0); BLOOD UREA NITROGEN 14 MG/DL (7-18); CARBON DIOXIDE LEVEL 27 MEQ/L (21-32); CHLORIDE LEVEL 109 MEQ/L (98-107); CREATININE FOR GFR 0.82 MG/DL (0.55-1.30); ETHYL ALCOHOL (ETHANOL) < 0.003 % (0.000-0.010); GLOMERULAR FILTRATION RATE > 60.0 (>60); GLUCOSE, FASTING 117 MG/DL (70-100); POTASSIUM SERUM 3.7 MEQ/L (3.5-5.1); SALICYLATE LEVEL < 1.7 MG/DL (5.0-30.0); SODIUM LEVEL 141 MEQ/L (136-145); TOTAL PROTEIN 7.2 GM/DL (6.4-8.2)
[2021-05-11 23:04] LABS: RSV AMPLIFICATION NEGATIVE (NEGATIVE)
[2021-05-11 23:52] LABS: AMPHETAMINES LEVEL URINE NEGATIVE (NEGATIVE); BARBITURATES URINE NEGATIVE (NEGATIVE); BENZODIAZEPINES URINE NEGATIVE (NEGATIVE); CANNABINOIDS URINE NEGATIVE (NEGATIVE); COCAINE METABOLITE URINE NEGATIVE (NEGATIVE); METHADONE URINE NEGATIVE (NEGATIVE); OPIATES URINE NEGATIVE (NEGATIVE); PHENCYCLIDINE URINE NEGATIVE (NEGATIVE)
[2021-05-12] MEDS ORDERED: HOME MED LIST COMPLETE! XX SCH (00:15)
[2021-05-12 05:19] VITALS: BP 122/66
== END 2021-05-12 05:20 | disposition home or self-care (01) ==
LOC: M ED 20:56
DX: F43.20 Adjustment disorder, unspecified (principal); F32.9 Major depressive disorder, single episode, unspecified; F17.290 Nicotine dependence, other tobacco product, uncomplicated

== ENCOUNTER 2021-06-07 12:05 | Emergency (ER) | payer OTHER ==
[~2021-06-07] VITALS: Ht 157.5 cm; Wt 65.9 kg
[2021-06-07 12:06] VITALS: BP 129/60
== END 2021-06-07 12:19 | disposition left against medical advice (07) ==
LOC: M ED 12:05
DX: Z53.29 Procedure and treatment not carried out because of patient's decision for other reasons (principal)

== ENCOUNTER 2021-11-07 12:17 | Emergency (ER) | payer OTHER ==
[~2021-11-07] VITALS: Ht 157.5 cm; Wt 82.3 kg
[2021-11-07] MEDS ORDERED: AUGMENTIN 875 MG TAB PO ONE (17:05)
[2021-11-07] MEDS ORDERED: AMOX875T2 PO (17:14)
[2021-11-07 17:53] VITALS: BP 130/70
== END 2021-11-07 17:55 | disposition home or self-care (01) ==
LOC: M ED 12:17
DX: K08.89 Other specified disorders of teeth and supporting structures (principal)

== ENCOUNTER 2021-12-17 15:24 | Emergency (ER) | payer OTHER ==
[~2021-12-17] VITALS: Ht 157.5 cm; Wt 85.8 kg
[~2021-12-17 15:24] MED LIST changes: +AMOX875T2 PO
[2021-12-17] MEDS ORDERED: PREN1TAB18 PO (16:29)
[2021-12-17 16:44] LABS: BASO % 0.2 % (0.0-1.0); EOS # 0.2 10^3/uL (0.0-0.5); EOS % 1.6 % (0.0-3.0); HEMATOCRIT 31.6 % (36.0-47.0); HEMOGLOBIN 10.5 g/dl (12.0-15.5); LYMPH # 2.1 10^3/uL (1.5-5.0); LYMPH % 16.8 % (24.0-44.0); MEAN CORPUSCULAR HEMOGLOBIN 27.5 pg (27.0-33.0); MEAN CORPUSCULAR HGB CONC 33.2 g/dl (32.0-36.5); MEAN CORPUSCULAR VOLUME 82.7 fl (80.0-96.0); MONO % 8.1 % (2.0-8.0); NEUTROPHILS # 8.8 10^3/uL (1.5-8.5); NEUTROPHILS % 72.1 % (36.0-66.0); PLATELET COUNT, AUTOMATED 299 10^3/uL (150-450); RED BLOOD COUNT 3.82 10^6/uL (4.00-5.40); WHITE BLOOD COUNT 12.3 10^3/uL (4.0-10.0)
[2021-12-17 17:11] LABS: ALBUMIN 2.8 GM/DL (3.2-5.2); BILIRUBIN,DIRECT 0.2 MG/DL (0.0-0.2); BILIRUBIN,TOTAL 0.1 MG/DL (0.2-1.0); TOTAL PROTEIN 6.8 GM/DL (6.4-8.2)
[2021-12-17 20:34] VITALS: BP 120/60
== END 2021-12-17 20:36 | disposition home or self-care (01) ==
LOC: M ED 15:24
DX: O26.892 Other specified pregnancy related conditions, second trimester (principal); R10.84 Generalized abdominal pain; M54.50 Low back pain, unspecified; Z3A.16 16 weeks gestation of pregnancy; Z87.891 Personal history of nicotine dependence

== ENCOUNTER 2022-02-02 12:44 | Outpatient (CLI) | payer OTHER ==
[~2022-02-02 12:44] MED LIST changes: +PREN1TAB18 PO
[2022-02-02 14:55] VITALS: BP 129/75
== END 2022-02-02 18:16 | disposition home or self-care (01) ==
LOC: M LDO 12:44
PROVIDERS: ATTEND Obstetrics & Gynecology
DX: O26.852 Spotting complicating pregnancy, second trimester (principal); Z3A.22 22 weeks gestation of pregnancy
CPT/HCPCS: 59025; 81000; 81015; G0463

== ENCOUNTER 2022-02-26 09:20 | Outpatient (CLI) | payer OTHER ==
[~2022-02-26] VITALS: Ht 157.5 cm; Wt 92.6 kg
[2022-02-26 09:47] VITALS: BP 121/58
[2022-02-26] MEDS ORDERED: HOME MED LIST COMPLETE! XX SCH (10:10)
[2022-02-26] MEDS ORDERED: NS 1,000 ML IV ONE (10:35)
[2022-02-26 11:01] LABS: HEMATOCRIT 29.8 % (36.0-47.0); HEMOGLOBIN 9.9 g/dl (12.0-15.5); MEAN CORPUSCULAR HEMOGLOBIN 27.7 pg (27.0-33.0); MEAN CORPUSCULAR HGB CONC 33.2 g/dl (32.0-36.5); MEAN CORPUSCULAR VOLUME 83.5 fl (80.0-96.0); PLATELET COUNT, AUTOMATED 282 10^3/uL (150-450); RED BLOOD COUNT 3.57 10^6/uL (4.00-5.40)
[2022-02-26 11:28] VITALS: BP 118/69
[2022-02-26 12:52] VITALS: BP 130/66
[2022-02-26 13:58] VITALS: BP 111/62
== END 2022-02-26 14:10 | disposition home or self-care (01) ==
LOC: M LDO 09:20
PROVIDERS: ATTEND Obstetrics & Gynecology
DX: O9A.213 Injury, poisoning and certain other consequences of external causes complicating pregnancy, third trimester (principal); S30.0XXA Contusion of lower back and pelvis, initial encounter; W10.8XXA Fall (on) (from) other stairs and steps, initial encounter; Y92.009 Unspecified place in unspecified non-institutional (private) residence as the place of occurrence of the external cause; Z3A.31 31 weeks gestation of pregnancy; O99.013 Anemia complicating pregnancy, third trimester
CPT/HCPCS: 36415; 59025; 85027; 85460; G0463

== ENCOUNTER 2022-05-30 07:55 | Inpatient (IN) | payer OTHER ==
[2022-05-30] VITALS (7 sets, daily range): BP systolic 116–128; BP diastolic 64–87
[~2022-05-30] VITALS: Ht 157.5 cm; Wt 97.8 kg
[~2022-05-30 07:55] MED LIST changes: +IRON27TA2 PO
[2022-05-30] MEDS ORDERED: LACTATED RINGER'S 1000 ML IV STA ×2 (08:04→08:08)
[2022-05-30] MEDS ORDERED: CARBOPROST TROMETHAMINE 250 MCG/ML AMP IM PRN (08:05)
[2022-05-30] MEDS ORDERED: LIDOCAINE 1% MDV 20ML VIAL INFIL PRN (08:05)
[2022-05-30] MEDS ORDERED: LR 1,000 ML IV SCH ×2 (08:05→13:35)
[2022-05-30] MEDS ORDERED: BICITRA 30ML SOLN UDC PO ONE ×2 (08:05→08:10)
[2022-05-30] MEDS ORDERED: METHYLERGONOVINE MALEATE 0.2 MG/ML VIAL (J2210) IM PRN (08:05)
[2022-05-30] MEDS ORDERED: OXYTOCIN DRIP 30 UNITS in IV 1 EA IV PRN ×6 (08:05)
[2022-05-30] MEDS ORDERED: TRANEXAMIC ACID INJection 1,000 MG in NS 100 ML IV PRN (08:05)
[2022-05-30] MEDS ORDERED: OXYTOCIN INJ 10UNITS/ML 1ML VIAL IM PRN (08:05)
[2022-05-30] MEDS ORDERED: OXYTOCIN INJ 10UNITS/ML 1ML VIAL IV PRN (08:05)
[2022-05-30] MEDS ORDERED: ceFAZolin SOD 2 GM in IV 1 EA IV ONE (08:05)
[2022-05-30] MEDS ORDERED: HOME MED LIST COMPLETE! XX SCH (08:20)
[2022-05-30 08:57] LABS: HEMATOCRIT 37.3 % (36.0-47.0); MEAN CORPUSCULAR HEMOGLOBIN 26.6 pg (27.0-33.0); MEAN CORPUSCULAR HGB CONC 32.2 g/dl (32.0-36.5); MEAN CORPUSCULAR VOLUME 82.7 fl (80.0-96.0); PLATELET COUNT, AUTOMATED 280 10^3/uL (150-450); RED BLOOD COUNT 4.51 10^6/uL (4.00-5.40); WHITE BLOOD COUNT 9.4 10^3/uL (4.0-10.0)
[2022-05-30] MEDS ORDERED: ONDANSETRON 4MG 2ML VIAL As Ordered ONE (12:31)
[2022-05-30] MEDS ORDERED: ePHEDrine SULFATE 25 MG/5 ML(5MG/ML) SYRINGE As Ordered ONE (12:31)
[2022-05-30] MEDS ORDERED: KETOROLAC 60MG 2ML VIAL As Ordered ONE (12:31)
[2022-05-30] MEDS ORDERED: PHENYLephrine 500MCG 5ML (100MCG/ML) SYRINGE As Ordered ONE (12:31)
[2022-05-30] MEDS ORDERED: MORPHINE PRES-FREE INJ 10 MG/10 ML VIAL As Ordered ONE (13:03)
[2022-05-30] MEDS ORDERED: ONDANSETRON 4MG 2ML VIAL IV PRN ×2 (13:05→13:35)
[2022-05-30] MEDS ORDERED: RHOGAM 300MCG (1500IU) INJ IM SCH (13:05)
[2022-05-30] MEDS ORDERED: oxyCODONE 5MG TAB PO PRN ×3 (13:05→13:35)
[2022-05-30] MEDS ORDERED: MOM 30ML SUSPENSION UDC PO PRN (13:05)
[2022-05-30] MEDS ORDERED: NALOXONE INJ 0.4MG/1ML VIAL IV PRN ×2 (13:35)
[2022-05-30] MEDS ORDERED: MEPERIDINE INJ 25 MG/ML VIAL IV PRN (13:35)
[2022-05-30] MEDS ORDERED: diphenhydrAMINE 50MG/ML VIAL IV PRN (13:35)
[2022-05-30] MEDS: SLF 3 ML SYR IV SCH ×2 (13:35→21:35)
[2022-05-30] MEDS ORDERED: fentaNYL 100 MCG/2 ML INJECTION IV PRN (13:35)
[2022-05-30] MEDS ORDERED: **NOTE PATIENT COMMENT** MISC XX SCH (13:35)
[2022-05-30] MEDS ORDERED: METOCLOPRAMIDE INJ 10MG/2ML VIAL IV PRN ×2 (13:35)
[2022-05-30] MEDS: LR 1,000 ML IV SCH ×2 (15:55→22:45)
[2022-05-30] MEDS: KETOROLAC 30 MG/ML 1ML VIAL IV SCH (18:48)
[2022-05-30] MEDS: DOCUSATE SODIUM 100MG CAPSULE PO SCH (21:57)
[2022-05-31] MEDS: KETOROLAC 30 MG/ML 1ML VIAL IV SCH ×2 (00:18→07:35)
[2022-05-31 02:00] VITALS: BP 111/55
[2022-05-31] MEDS: SLF 3 ML SYR IV SCH (05:35)
[2022-05-31 06:00] VITALS: BP 119/65
[2022-05-31] MEDS: LR 1,000 ML IV SCH (07:50)
[2022-05-31 07:57] LABS: HEMATOCRIT 31.2 % (36.0-47.0); MEAN CORPUSCULAR HEMOGLOBIN 26.5 pg (27.0-33.0); MEAN CORPUSCULAR HGB CONC 31.7 g/dl (32.0-36.5); MEAN CORPUSCULAR VOLUME 83.6 fl (80.0-96.0); PLATELET COUNT, AUTOMATED 211 10^3/uL (150-450); RED BLOOD COUNT 3.73 10^6/uL (4.00-5.40)
[2022-05-31 08:04] LABS: HEMOGLOBIN 9.9 g/dl (12.0-15.5)
[2022-05-31] MEDS ORDERED: PRENATAL VITAMINS CHEWABLE TABLET PO SCH (09:00)
[2022-05-31] MEDS: PRENATAL VITAMINS CHEWABLE TABLET PO SCH (09:19)
[2022-05-31] MEDS: ACETAMINOPHEN 500 MG TAB PO PRN ×2 (09:19→17:22)
[2022-05-31] MEDS: DOCUSATE SODIUM 100MG CAPSULE PO SCH ×2 (09:19→20:53)
[2022-05-31 10:00] VITALS: BP 121/65
[2022-05-31 14:00] VITALS: BP 116/60
[2022-05-31 16:00] VITALS: BP 114/77
[2022-05-31] MEDS: IBUPROFEN 800 MG TAB PO SCH ×2 (17:22→23:00)
[2022-05-31] MEDS: SIMETHICONE 80MG CHEW TAB PO PRN (20:53)
[2022-05-31 21:45] VITALS: BP 119/66
[2022-06-01 01:50] VITALS: BP 122/73
[2022-06-01] MEDS: IBUPROFEN 800 MG TAB PO SCH ×3 (02:26→14:56)
[2022-06-01 05:45] VITALS: BP 127/70
[2022-06-01] MEDS: DOCUSATE SODIUM 100MG CAPSULE PO SCH (09:19)
[2022-06-01] MEDS: PRENATAL VITAMINS CHEWABLE TABLET PO SCH (09:19)
[2022-06-01] MEDS: SIMETHICONE 80MG CHEW TAB PO PRN (09:19)
[2022-06-01 10:00] VITALS: BP 129/65
[2022-06-01] MEDS: ACETAMINOPHEN 500 MG TAB PO PRN (11:15)
== END 2022-06-01 14:30 | disposition home or self-care (01) | DRG 773 ==
LOC: M LDI 07:55 → M OBS 14:45
PROVIDERS: ADMIT Obstetrics & Gynecology; ATTEND Obstetrics & Gynecology
PROC: 10D00Z1 Extraction of Products of Conception, Low, Open Approach (ICD-10-PCS; principal; 2022-05-30 10:30)
DX: O32.2XX0 Maternal care for transverse and oblique lie, not applicable or unspecified (principal); Z3A.39 39 weeks gestation of pregnancy; Z37.0 Single live birth; O26.03 Excessive weight gain in pregnancy, third trimester; O99.893 Other specified diseases and conditions complicating puerperium; R33.9 Retention of urine, unspecified